=== PATIENT | male | born 1985 | race Caucasian/White ===

== ENCOUNTER 2021-10-18 16:18 | Emergency (ER) | payer OTHER ==
[~2021-10-18] VITALS: Ht 167.6 cm; Wt 91.0 kg
[2021-10-18] MEDS ORDERED: AMOXICILLIN/POTASSIUM CLAVULANATE 875/125MG TAB PO ONE (16:45)
[2021-10-18] MEDS ORDERED: KETOROLAC 60MG/2ML VIAL IM ONE (16:45)
[2021-10-18] MEDS ORDERED: AMOX-424 MT (17:33)
[2021-10-18] MEDS ORDERED: IBUP-2029 MT (17:33)
[2021-10-18 18:01] VITALS: BP 127/75
== END 2021-10-18 18:58 | disposition home or self-care (01) ==
LOC: ER 16:18
DX: S81.051A Open bite, right knee, initial encounter (principal); Y35.893A Legal intervention involving other specified means, suspect injured, initial encounter; W54.0XXA Bitten by dog, initial encounter; Y93.89 Activity, other specified; Y92.488 Other paved roadways as the place of occurrence of the external cause
CPT/HCPCS: 73560; 99283